=== PATIENT | male | born 1990 | race Caucasian/White ===

== ENCOUNTER 2016-08-09 22:34 | Observation (INO) | payer MEDICARE, MEDICAID ==
[~2016-08-09] VITALS: Ht 182.9 cm; Wt 69.2 kg
[2016-08-09 22:44] VITALS: BP 118/75; PULSE 109; O2SAT 99
[2016-08-09] MEDS ORDERED: Ondansetron 2 mg/mL 2 mL Inj IVPUSH ONE (23:10)
[2016-08-09] MEDS ORDERED: 0.9% Sodium Chloride 1,000 ML IV ONE ×2 (23:10→23:55)
--- NOTE | 2016-08-09 23:10 | ED.REPORT ---
HPI-NVD Date of Service Aug 09, 2016 ED Provider: MD David This is a 25 year old male with a history of Asperger's presenting to the emergency department due to vomiting that began 6 hours ago. Associated symptoms include diarrhea, nausea, epigastric abdominal pain, and chills. Five episodes diarrhea since onset. Denies hematemesis, hematochezia, dysuria, hematuria, or headache. Denies recent EtOH consumption. Pt ate a pizza from [employer] 7 hours ago. Nursing Notes Stated Complaint: VOMITING, DIARRHEA Chief Complaint: FLU/Cold Symptoms Nursing Notes Reviewed: Yes Allergies: Coded Allergies: No Known Allergies (Unverified , 10/23/15) General Time Seen by MD: 23:10 Chief Complaint Vomiting Hx Obtained From: Patient Arrived By: Walk-in Onset Occurred: 5 - 8 hours ago Symptom Duration: Since onset Severity: Current: Mild Pertinent Negative: Pt denies other symptoms Recent Healthcare: No recent doctor visit, No recent hospitalization Similar Sx Previous: No Past Medical History Past Medical History asperger's syndrome Past Surgical History Open heart surgery as a child Family History Reviewed, not relevant Smoking History Unknown if Ever Smoker Ambulatory Status Independent Review of Systems Constitutional: Reports: Chills, Denies: Fever GI: Reports: Abdominal pain, Diarrhea, Nausea, Vomiting, Denies: Constipation, Hematemesis, Hematochezia Neurologic: Denies: Headache Complete sys rev & neg: except as marked. Respiratory: Denies: Non-productive cough, Shortness of breath Male: Denies Dysuria, Denies Hematuria Physical Exam Initial Vital Signs Vital Signs (First) Date Time Temp Pulse Resp B/P Pulse Ox O2 Delivery O2 Flow Rate FiO2 08/09/16 22:44 36.1 109 118/75 99 Room Air Initial VS: Reviewed Head / Eyes: Atraumatic, Normocephalic, PERRL ENT: Conjunctiva normal, No scleral icterus Neck: Supple, Non-tender, Full range of motion Respiratory: Breath sounds normal, Clear to auscultation, No respiratory distress Cardiovascular: Regular rate & rhythm, Heart sounds normal, Intact distal pulses Extremities: Vascular intact, Neuro intact, No swelling, No tenderness Skin: Warm, Dry, No cyanosis Neurologic: Alert, Oriented, Nonfocal Psychiatric: Mood/affect normal, Behavior normal, Normal thought content General/Constitutional: Awake, Alert Tenderness/Guarding/Rebound: Positive: Tender diffuse (worse in RLQ) Midline well-healed sternotomy scar Interpretation & Diagnostics CT ABD PELVIS W CONTRAST IMPRESSION: Several loops of small bowel which demonstrate wall thickening, this may represent underdistention. In the proper clinical setting, infection or inflammatory bowel disease should be considered. Appendix is not seen, if there is clinical concern for appendicis, a repeat CT with oral or rectal contrast is recommended to help identify the appendix, and rule out appendicitis. Conclusion: Camron Hu MD Lab Results Interpretation Result Diagram: 08/09/16 2300 08/09/16 230 Test 08/09/16 23:00 08/10/16 01:00 White Blood Count 23.0th/mm3 (3.8-10.1) Red Blood Count 5.57mil/mm3 (4.40-5.80) Hemoglobin 17.0g/dL (13.8-17.2) Hematocrit 48.2% (41.0-50.0) Mean Corpuscular Volume 86.5fL (81-100) Mean Corpuscular Hemoglobin 30.5pg (27.0-35.0) Mean Corpuscular Hemoglobin Concent 35.3% (32.0-37.0) Red Cell Distribution Width 12.9% (12.3-15.4) Platelet Count 219bil/L (150-400) Neutrophils (%) (Auto) 92.1% (40-74) Lymphocytes (%) (Auto) 2.7% (14-46) Monocytes (%) (Auto) 4.5% (4-12) Eosinophils (%) (Auto) 0.3% (0-5) Basophils (%) (Auto) 0.1% (0-3) Sodium Level 141mEq/L (134-144) Potassium Level 4.2mEq/L (3.5-5.2) Chloride Level 100mEq/L (97-108) Carbon Dioxide Level 19mmol/L (18-29) Blood Urea Nitrogen 13mg/dL (6-20) Creatinine 0.74mg/dL (0.76-1.27) Estimat Glomerular Filtration Rate 135mL/min (>59) Glucose Level 180mg/dL (60-99) Lactic Acid Level 2.7mmol/L (0.4-2.0) Calcium Level 10.9mg/dL (8.5-10.1) Magnesium Level 1.8mg/dL (1.6-2.6) Total Bilirubin 1.0mg/dL (0.0-1.2) Aspartate Amino Transf (AST/SGOT) 17U/L (0-50) Alanine Aminotransferase (ALT/SGPT) 11U/L (0-44) Alkaline Phosphatase 66U/L (25-150) Total Protein 8.8g/dL (6.4-8.4) Albumin 5.5g/dL (3.4-5.0) Lipase 16U/L (13-60) Urine Color Dark yellow (YELLOW) Urine Appearance Clear (CLEAR,HAZY) Urine pH 7.5 (5.0-8.0) Urine Specific [place] 1.010 (1.003-1.035) Urine Protein Negativemg/dL (NEG,TRACE) Urine Glucose (UA) Negativemg/dL (NEGATIVE) Urine Ketones Negativemg/dL (NEGATIVE) Urine Occult Blood Negative (NEGATIVE) Urine Nitrite Negative (NEGATIVE) Urine Bilirubin Negative (NEGATIVE) Urine Urobilinogen Normalmg/dL (NORMAL) Urine Leukocyte Esterase Negative (NEGATIVE) Urine RBC 0-2/hpf (0-2) Urine WBC 0-5/hpf (0-5) Urine Epithelial Cells Occasional/hpf (NONE-MOD) Urine Crystals None seen (NONE SEEN) Urine Bacteria None/hpf (NONE-FEW) Urine Hyaline Casts None/lpf (NONE) Urine Granular Casts None seen (NONE SEEN) Urine Waxy Casts None seen (NONE SEEN) Urine Red Blood Cell Casts None seen (NONE SEEN) Urine White Blood Cell Casts None seen (NONE SEEN) Urine Mucus Present (None Seen) Urine Trichomonas None seen (NONE SEEN) Urine Yeast None (NONE SEEN) Urine Culture Reflexed Not indicated Re-Eval/Medical Decision Med Decision/Clinical Course 25-year-old male with no past medical history here with severe nausea, vomiting , diarrhea of sudden onset at 5:00 today. Differential diagnosis includes but is not limited to viral versus bacterial gastroenteritis versus appendicitis versus new onset inflammatory bowel disease. CT scan shows thickened bowel loops, but the appendix was not visualized. Patient has a leukocytosis with left shift. H&H are unremarkable. CMP shows hyperglycemia, though is otherwise normal. His lactic acid is elevated at 2.7. He was given 2 L of fluids in the emergency department, along with several rounds of antiemetics. I discussed the case with surgery Dr. Camejo who will see the patient in the morning, though both of us have somewhat low suspicion for appendicitis given his history of present illness. Patient has been accepted by the hospitalist Dr. Tay for IV fluids, antiemetics, and further workup of infectious process. He is aware and amenable to admission. At this time, I do not feel he requires antibiotics, as I do not know what I am treating. Re-Evaluation/Progress : Time of Eval: 01:51 Re-Evaluation/Progress Note: Discussed need for admission, all questions addressed Consultation #1: Referral / Consult Name: Juancarlos Camejo MD Consulted With: Surgeon Call Returned at: 00:55 [employer] Application Developer: Agrees with eval, Agrees with plan Note: Recommends admission Consultation #2: Referral / Consult Name: Colleen Tay DO Consulted With: Hospitalist Call Returned at: 01:51 [employer] Application Developer: Accepts admit Counseled Regarding: Diagnosis, Need for follow-up Discharge & Departure Impression: Primary Impression: Nausea vomiting and diarrhea Disposition: ADMITTED TO HOSPITAL Discharge Condition All VS Reviewed: Yes Condition: Stable Referrals: [facility] ([facility]) Scribe Attestation Portions of this note were transcribed by Annette Anders. I, Dr. Hernandez personally performed the history, physical exam and medical decision-making; I reviewed and confirmed the accuracy of the information in the transcribed note. Signed by: lana Chow. 08/09/2016, 03:00. Lauren Hernandez MD Aug 09, 2016 23:10 ANNTETE ANDERS Aug 09, 2016 23:13
[2016-08-09 23:20] LABS: BASOPHILS % (AUTO) 0.1 % (0-3); EOSINOPHILS % (AUTO) 0.3 % (0-5); MONOCYTES % (AUTO) 4.5 % (4-12); Mean Corpuscular Hemoglobin 30.5 pg (27.0-35.0); Mean Corpuscular Volume 86.5 fL (81-100); NEUTROPHILS % (AUTO) 92.1 % (40-74); Platelet Count 219 bil/L (150-400)
[2016-08-09 23:44] LABS: Magnesium 1.8 mg/dL (1.6-2.6)
[2016-08-10] VITALS (7 sets, daily range): BP systolic 108–122; BP diastolic 48–77; PULSE 59–86; RESP 16–20; O2SAT 97–99
[2016-08-10] MEDS ORDERED: HYDROmorphone 0.5 mg/0.5 mL iSecure Syringe IVPUSH ONE (00:55)
[2016-08-10] MEDS ORDERED: Promethazine Inj 25 MG in 0.9% Sodium Chloride-Pha MIX 100 ML IV ONE (00:55)
[2016-08-10 01:31] LABS: APPEARANCE,URINE CLEAR (CLEAR,HAZY); COLOR,URINE DARK YELLOW (YELLOW); PH,URINE 7.5 (5.0-8.0)
[2016-08-10 01:32] LABS: OCCULT BLOOD,URINE NEGATIVE (NEGATIVE); UROBILINOGEN,URINE NORMAL (NORMAL)
[2016-08-10] MEDS ORDERED: Alum-Mag Hydrox-Simeth 30 mL Suspension PO PRN (01:55)
[2016-08-10] MEDS ORDERED: Polyethylene Glycol (PEG) 17 Gm Powder PO PRN (01:55)
[2016-08-10] MEDS ORDERED: Ondansetron 2 mg/mL 2 mL Inj IVPUSH PRN (01:55)
--- NOTE | 2016-08-10 02:00 | PCM.HPMED ---
Subjective Date of Service Aug 10, 2016 Primary Provider: Admitting Physician: Colleen Tay DO Primary Care Physician: [facility] Attending Physician: Colleen Tay DO Admit Status: From the Emergency Department Chief Complaint: nausea, vomiting, diarrhea History of Present Illness: 25yoM with minimal past medical history admitted with acute onset of nausea, vomiting and diarrhea. Patient states that prior to admission he began having nausea and chills with onset of vomiting (20x) and diarrhea. Diarrhea is described as watery and was a /w incontinence. He has recent contact with son who had similar symptoms however not diarrhea. Prior to onset patient ate at [employer] with family however he appears to be the only one to have N/V/D. Patient denies hematochezia, melena, hematemesis, urinary symptoms, abdominal pain but does endorse mild chest discomfort with vomiting and lightheadedness. On admission patient with HR 109, T36.1, BP 118/75, 99% on RA. WBC 23, neutrophil 92.1%, lactic acid 2.7 Review of Systems: complete review of system obtained. positive as per hpi otherwise negative. Allergies Coded Allergies: No Known Allergies (Unverified , 10/23/15) Home Medications Strattera PMH Asbergers Syndrome ADD Surgical History Open heart surgery as a child Family History no family history of asbergers Social History Hx Alcohol Use: No Hx Substance Use: No (NO MARIJAUNA X 1 MONTH PER PT) Smoking Status: Unknown if Ever Smoker Living Arrangement: with Family Exam Vital Signs Vital Sign - Last Date Time Temp Pulse Resp B/P Pulse Ox O2 Delivery O2 Flow Rate FiO2 08/09/16 22:44 36.1 109 118/75 99 Room Air Intake and Output 08/09/16 08/09/16 08/10/16 Cumulative From/Thru 15:00 23:00 07:00 08/09/16 22:44 - 08/10/16 00:00 Intake Total 2000 ml 2000 ml Balance 2000 ml 2000 ml Intake IV Total 2000 ml 2000 ml Exam General: Alert, Oriented x3, no acute distress Eyes: PERRLA, sclera anicteric Mouth: dry mucous membranes Head: NCAT Neck: supple, trachea midline, no thyromegaly Chest and lungs: CTA and percussion bilateral, no adventitious breath sounds, no crackles, no wheeze, good resp effort Cardiovascular: Normal S1 and S2, no R/G, systolic murmur, regular rate and rhythm Abdomen: non-tender, non-distended, hypoactive bowel sounds Pulses: Radial (present and equal), Dorsalis pedi (present and equal) MSK: no erythema / edema, Extremities: no edema / erythema Skin: no rashes, bruises Neuro: grossly intact Psych: normal affect Lab and Diagnostics Result Diagram: 08/09/16 2300 08/09/16 2300 X-Rays, CTs and MRIs CT ABD PELVIS W CONTRAST IMPRESSION: Several loops of small bowel which demonstrate wall thickening, this may represent underdistention. In the proper clinical setting, infection or inflammatory bowel disease should be considered. Appendix is not seen, if there is clinical concern for appendicis, a repeat CT with oral or rectal contrast is recommended to help identify the appendix, and rule out appendicitis. Conclusion: Camron Hu MD Assessment & Plan 25yoM with minimal past medical history admitted with acute onset of nausea, vomiting and diarrhea. Severe sepsis, acute, POA -HR >90, WBC>12, lactic acid 2.7 -most likely secondary to gastroenteritis, as below -symptomatic treatment, low threshold to start broad spectrum empiric abx Nausea, vomiting, diarrhea, acute, POA -unclear etiology, likely gastroenteritis, acute appendicitis not ruled out however less likely (Surgery consulted in ED), possible IBD -known sick contacts -stool PCR pending -contact isolation precautions -mIVF, NPO until after surgery evaluation -ondansetron 4-8mg q4HR PRN Elevated glucose, acute, POA -no history of DM -hgba1c pending Hypercalcemia, acute, POA -mildly elevated calcium -continue to monitor -s/p bolus in ED, mIVF as above -if remain elevated consider iCA level Pain Evaluation: Adequate Pain Control GI Prophylaxis: Not indicated VTE Prophylaxis: Sub-Q Heparin (Unfractionated) Resuscitation Status: CPR: Attempt Resuscitation Colleen Tay DO Aug 10, 2016 02:00
--- NOTE | 2016-08-10 02:45 | NUR ---
Transfer Patient arrived to unit able to self transfer to bed and stand on scale. Patient alert and able to make needs known. Denies pain and nausea at this time.
[2016-08-10] MEDS: 0.9% Sodium Chloride 1,000 ML IV SCH ×3 (03:12→23:12)
[2016-08-10 05:28] LABS: BASOPHILS % (AUTO) 0.1 % (0-3); EOSINOPHILS % (AUTO) 0 % (0-5); Mean Corpuscular Volume 88.1 fL (81-100); NEUTROPHILS % (AUTO) 95.9 % (40-74); Platelet Count 165 bil/L (150-400)
--- NOTE | 2016-08-10 08:20 | PCM.CONSUR ---
Subjective Date of Service: Aug 10, 2016 History of Present Illness Mr. Kavon Hugo is a 25 year old gentleman with past medical history of congenital heart defect, Asperger's, ADHD, who presented to the emergency department due to epigastric pain followed by vomiting and watery diarrhea x20. Patients son had similar symptoms the day before. Patient ate [employer] with family however he appears to be the only one to have N/V/D. Denies hematemesis, hematochezia, dysuria, hematuria, or headache. Denies recent EtOH consumption. Denies tobacco, reports intermittent marijuana use. Reason for Consultation Abdominal pain, vomiting, diarrhea. Allergy Allergies: Coded Allergies: No Known Allergies (Unverified , 08/10/16) Medications Hypertension Medication: No Home Meds Incl Beta Blockers: No Atomoxetine (Strattera) 60 Mg Capsule 60 MG PO DAILY (Reported) Last Taken: Unknown Dose on 08/09/16 0900 Sertraline HCl (Sertraline) 50 Mg Tablet 50 MG PO DAILY (Reported) Last Taken: Unknown Dose on 08/09/16 0900 Past Surgical History Surgeries: Yes (Repair of congenital heart defect. ) Patient/Family Past Surgical: Positive for:: Accept Blood Products?, Denies:: Blood Transfusions Social History Hx Alcohol Use: No Hx Substance Use: No PMH HEENT History History of ENT Problems?: No Cardiovascular History History of Heart Problems?: No Cardiovascular History: Positive for:: Heart Murmur Denies:: Congestive Heart Failure Hypertension Respiratory Respiratory History: Positive for:: Pneumonia Denies:: Tuberculosis Neurological History Hx Neurologic Problems?: No Gastrointestinal History HX of GI Problems?: No Genitourinary History Genitourinary History: Denies: Kidney Stones Urinary Tract Infection Musculoskeletal History Hx Musculoskeletal Problems?: No Psycho Social History Hx of Psycho/Social Problems?: No Other History Diabetes: No Social History Hx Alcohol Use: NoHx Substance Use: NoHx Tobacco Use: No Smoking Status: Unknown if Ever Smoker Living Arrangement: with Family Objective Exam Objective A comprehensive review of systems was conducted with the patient and found to be negative except as above in the History of Present Illness. Vital Signs & I/O Vital Sign- Last 8 Hours Date Time Temp Pulse Resp B/P Pulse Ox O2 Delivery O2 Flow Rate FiO2 08/10/16 03:56 69 08/10/16 03:16 36.8 67 20 113/68 97 Room Air 08/10/16 02:36 36.4 86 17 122/77 99 Room Air Intake and Output- Last 8 Hour 08/10/16 Cumulative From/Thru 07:00 08/09/16 22:44 - 08/10/16 05:39 Intake Total 2000 ml 2000 ml Balance 2000 ml 2000 ml Intake IV Total 2000 ml 2000 ml Lab & Micro Results Laboratory Tests Test 08/09/16 23:00 08/10/16 01:00 08/10/16 03:30 08/10/16 04:42 White Blood Count 23.0th/mm3 (3.8-10.1) 14.9th/mm3 (3.8-10.1) Red Blood Count 5.57mil/mm3 (4.40-5.80) 4.36mil/mm3 (4.40-5.80) Hemoglobin 17.0g/dL (13.8-17.2) 13.1g/dL (13.8-17.2) Hematocrit 48.2% (41.0-50.0) 38.4% (41.0-50.0) Mean Corpuscular Volume 86.5fL (81-100) 88.1fL (81-100) Mean Corpuscular Hemoglobin 30.5pg (27.0-35.0) 30.0pg (27.0-35.0) Mean Corpuscular Hemoglobin Concent 35.3% (32.0-37.0) 34.1% (32.0-37.0) Red Cell Distribution Width 12.9% (12.3-15.4) 12.7% (12.3-15.4) Platelet Count 219bil/L (150-400) 165bil/L (150-400) Neutrophils (%) (Auto) 92.1% (40-74) 95.9% (40-74) Lymphocytes (%) (Auto) 2.7% (14-46) 1.9% (14-46) Monocytes (%) (Auto) 4.5% (4-12) 2.0% (4-12) Eosinophils (%) (Auto) 0.3% (0-5) 0% (0-5) Basophils (%) (Auto) 0.1% (0-3) 0.1% (0-3) Sodium Level 141mEq/L (134-144) 145mEq/L (134-144) Potassium Level 4.2mEq/L (3.5-5.2) 4.2mEq/L (3.5-5.2) Chloride Level 100mEq/L (97-108) 108mEq/L (97-108) Carbon Dioxide Level 19mmol/L (18-29) 21mmol/L (18-29) Blood Urea Nitrogen 13mg/dL (6-20) 11mg/dL (6-20) Creatinine 0.74mg/dL (0.76-1.27) 0.75mg/dL (0.76-1.27) Estimat Glomerular Filtration Rate 135mL/min (>59) 133mL/min (>59) Glucose Level 180mg/dL (60-99) 137mg/dL (60-99) Lactic Acid Level 2.7mmol/L (0.4-2.0) 1.0mmol/L (0.4-2.0) Calcium Level 10.9mg/dL (8.5-10.1) 9.1mg/dL (8.5-10.1) Magnesium Level 1.8mg/dL (1.6-2.6) Total Bilirubin 1.0mg/dL (0.0-1.2) 0.9mg/dL (0.0-1.2) Aspartate Amino Transf (AST/SGOT) 17U/L (0-50) 13U/L (0-50) Alanine Aminotransferase (ALT/SGPT) 11U/L (0-44) 8U/L (0-44) Alkaline Phosphatase 66U/L (25-150) 47U/L (25-150) Total Protein 8.8g/dL (6.4-8.4) 6.4g/dL (6.4-8.4) Albumin 5.5g/dL (3.4-5.0) 4.4g/dL (3.4-5.0) Lipase 16U/L (13-60) Urine Color Dark yellow (YELLOW) Urine Appearance Clear (CLEAR,HAZY) Urine pH 7.5 (5.0-8.0) Urine Specific [place] 1.010 (1.003-1.035) Urine Protein Negativemg/dL (NEG,TRACE) Urine Glucose (UA) Negativemg/dL (NEGATIVE) Urine Ketones Negativemg/dL (NEGATIVE) Urine Occult Blood Negative (NEGATIVE) Urine Nitrite Negative (NEGATIVE) Urine Bilirubin Negative (NEGATIVE) Urine Urobilinogen Normalmg/dL (NORMAL) Urine Leukocyte Esterase Negative (NEGATIVE) Urine RBC 0-2/hpf (0-2) Urine WBC 0-5/hpf (0-5) Urine Epithelial Cells Occasional/hpf (NONE-MOD) Urine Crystals None seen (NONE SEEN) Urine Bacteria None/hpf (NONE-FEW) Urine Hyaline Casts None/lpf (NONE) Urine Granular Casts None seen (NONE SEEN) Urine Waxy Casts None seen (NONE SEEN) Urine Red Blood Cell Casts None seen (NONE SEEN) Urine White Blood Cell Casts None seen (NONE SEEN) Urine Mucus Present (None Seen) Urine Trichomonas None seen (NONE SEEN) Urine Yeast None (NONE SEEN) Urine Culture Reflexed Not indicated Microbiology 08/09/16 Blood Culture, Received Pending Result Diagram: 08/10/162 08/10/16 0442 Review of Systems: Constitutional: Negative, except as otherwise mentioned in the history above. Ophthalmologic: Negative, except as otherwise mentioned in the history above. Cardiovascular: Negative, except as otherwise mentioned in the history above. Respiratory: Negative, except as otherwise mentioned in the history above. Gastrointestinal: Negative, except as otherwise mentioned in the history above. Genitourinary: Negative, except as otherwise mentioned in the history above. Musculoskeletal: Negative, except as otherwise mentioned in the history above. Neurological: Negative, except as otherwise mentioned in the history above. Psychiatric: Negative, except as otherwise mentioned in the history above. Hematologic/Lymphatic: Negative, except as otherwise mentioned in the history above. Allergic/Immunologic: Negative, except as otherwise mentioned in the history above. H&P Surgical Exam Exam General: Alert, Oriented X3, No Acute Distress HEENT: Within normal limits & unremarkable Neck: Within normal limits & unremarkable Respiratory: Clear to Auscultation, Breath Sounds Diminished Cardiac: Other (Regular rate and rhythm, mild systolic flow murmur present. ) Abdomen: Normal bowel sounds, Soft, No tenderness, No masses Breasts: Not Indicated Pelvic: Not Indicated Assessment & Plan Assessment Assessment. Mr. Kavon Hugo is a 25 year old gentleman with past medical history of congenital heart defect, Asperger's, ADHD, who presented to the emergency department due to epigastric pain followed by vomiting and watery diarrhea x20. Patients son had similar symptoms the day before. Patient ate [employer] with family however he appears to be the only one to have N/V/D. Denies hematemesis, hematochezia, dysuria, hematuria, or headache. Denies recent EtOH consumption. Denies tobacco, reports intermittent marijuana use. Differential includes bacterial vs. viral gastroenteritis, Cdiff, appendicitis, gastritis. Pain Evaluation: Adequate Pain Control VTE Prophylaxis: Sub-Q Heparin (Unfractionated) Plan: I do not believe this is a surgical case. Patients symptoms of epigastric pain, vomiting and diarrhea have been resolved now for at least 9 hours. Appendix was not visualized on CT. WBC continues to improve with fluids. Advance diet to clears and monitor. Disposition per hospitalist. Resuscitation Status: CPR: Attempt Resuscitation Attending Statement: I personally interviewed and examined the pt, and I agree with Dr. Quan's assessment and plan. Doubt he has a surgical pathology. DANGELO QUAN DO Aug 10, 2016 08:04 Juancarlos Penny MD Aug 13, 2016 08:03
--- NOTE | 2016-08-10 08:43 | DRSVH ---
PROCEDURE: CT ABDOMEN AND PELVIS WITH CONTRAST ([id number]) INDICATIONS: 25 year-old man with right lower quadrant pain, chills and vomiting. TECHNIQUE: After the administration of intravenous contrast, 5 mm thick sections acquired from the diaphragm to the symphysis. 5 mm coronal and sagittal reformats were acquired. For radiation dose reduction, the following was used: automated exposure control, adjustment of mA and/or kV according to patient siz e. COMPARISON: None. FINDINGS: Image quality: Excellent. ABDOMEN: Lung bases: Lung bases are clear. Heart size is normal. Solid organs: Liver and spleen are normal in size and enhancement. Gallbladder is normal. Biliary system is non dilated. Pancreas enhances normally. No adrenal nodules. Kidneys demonstrate normal size and enhancement, without hydronephrosis. Peritoneum and bowel: Appendix is not definitively identified. A candidate for appendicitis (series 2 image 18) measures 6 mm. There is mild inflammatory stranding in the area. Cecum and terminal ileum are filled with fluid. There is no inflammatory stranding in the right lower quadrant. Loops of jeju num appear concentrically thickened. Bowel loops demonstrate normal caliber. No free fluid or air. Nodes and vessels: No retroperitoneal or mesenteric adenopathy by size criteria. Aorta and inferior vena cava are normal in size. Miscellaneous: No ventral hernias. PELVIS: Genitourinary: Bladder wall thickness is normal. Miscellaneous: No inguinal hernias or adenopathy. Bones: No suspicious bony lesions. No vertebral body compression fractures. IMPRESSION: 1. Appendix is not definitively identified. A candidate for appendix is normal in caliber. There is s ubtle stranding in the area. Early acute appendicitis can not be excluded. If clinically indicated, r epeat examination with oral contrast may be helpful. 2. Cecum and the terminal ileum are filled with fluid, which is a nonspecific finding and could be as sociated with an inflammatory or infectious process. 3. Segmental concentric thickening of the jejunum which may be caused by artifact from lack of disten tion or peristalsis. Differential diagnosis includes infectious or inflammatory etiologies. No significant discrepancy with the night stocker radiology preliminary report. Dictated by: Cathi Gonzalez M.D. on 08/10/2016 at 8:19 Transcribed by: CARMEN on 08/10/2016 at 8:43 Approved by: Cathi Gonzalez M.D. on 08/10/2016 at 16:03
[2016-08-10] MEDS ORDERED: SERT50TA9 PO (09:16)
[2016-08-10] MEDS ORDERED: ATOM60CA PO (09:16)
--- NOTE | 2016-08-10 11:10 | NUR ---
Case Management: AMERICA given and explained to pt. Patricia AGOSTORN
--- NOTE | 2016-08-10 13:14 | NUR ---
pt asking to leave frequently, wants to leave AMA "I'm going to leave when that bag(IVFs) is done" Dr Egan is aware pt wants to leave, he also talked to him at length, doctor feels he should stay at least overnight. Also Dr Egan and pt notified he is positive for Norovirus
[2016-08-10] MEDS: STRATTERA 60 MG PO SCH (13:46)
--- NOTE | 2016-08-10 15:31 | NUR ---
Social Work-attempted assessment: SW attempted to see pt, but RN currently in the room with pt. SW to follow up tomorrow and complete assessment. SW will continue to follow. MAURO Gabriel
--- NOTE | 2016-08-10 15:45 | NUR ---
GI pt continues to have small amts of loose stool, no nausea/vomiting, but has poor appetite, although he is eating few bites and taking some PO fluids
[2016-08-11] VITALS (7 sets, daily range): BP systolic 99–122; BP diastolic 58–75; PULSE 54–78; RESP 16–20; O2SAT 97–100
[2016-08-11] MEDS: 0.9% Sodium Chloride 1,000 ML IV SCH ×2 (07:50→19:59)
--- NOTE | 2016-08-11 08:56 | NUR ---
Social Work-initial assessment/ readiness for discharge: Data:See initial assessment. pt is a 25 y/o male who was admitted on 08/06/16 for vomiting per H&P. Pt's insurance is [employer] and PCP is [facility]. EMR Reviewed. Pt's readmission score is 1. SW met with pt at bedside to discuss discharge planning, SW role explained. Pt is alert and oriented x3. Pt resides at home with his girlfriend Ananay [phone] where he remains independent with ADLS. Pt does not drive and does not use any DME. pt has no HH or SNF history. Pt has no shelter care or VA benefits. SW discussed DPOA/advanced directive, pt has not completed this and is not interested in any information at this time. Per RN notes, pt has up independent in his room. Pt states his girlfriend will provide transport home. SW provided phone number and plan on white board in room. No discharge needs identified. SW will continue to follow if needs arise. Assessment:Pt who is independent at baseline. Plan:Pt to discharge home when medically stable via POV. No discharge needs identified. SW will continue to follow if needs arise. MAURO Gabriel Addendum: 08/11/16 at 0900 by RAMESH RAM Amended: Links added.
[2016-08-11 09:23] LABS: BASOPHILS % (AUTO) 0.1 % (0-3); EOSINOPHILS % (AUTO) 1.5 % (0-5); MONOCYTES % (AUTO) 7.3 % (4-12); Mean Corpuscular Hemoglobin 30.2 pg (27.0-35.0); Mean Corpuscular Volume 89.8 fL (81-100); Platelet Count 159 bil/L (150-400)
[2016-08-11] MEDS: STRATTERA 60 MG PO SCH (09:41)
--- NOTE | 2016-08-11 11:18 | PCM.PNMED ---
Subjective Date of Service Aug 11, 2016 Subjective Pt continues to have diarrhea. He has had 5 bowel movements this morning already. He denies abdominal pain, nausea, vomiting, and fever. He is anxious to leave hospital and is threatening to leave AMA. No other complaints or concerns at this time. Exam Vital Signs Vital Sign - Last Date Time Temp Pulse Resp B/P Pulse Ox O2 Delivery O2 Flow Rate FiO2 08/11/16 06:28 36.9 59 16 99/58 98 Room Air Intake and Output 08/10/16 08/10/16 08/11/16 Cumulative From/Thru 15:00 23:00 07:00 08/09/16 22:44 - 08/11/16 06:28 Intake Total 2928 ml 826 ml 5754 ml Output Total 400 ml 400 ml Balance 2528 ml 826 ml 5354 ml Intake Oral 1473 ml 826 ml 2299 ml IV Total 1455 ml 3455 ml Output Urine Total 400 ml 400 ml # Voids 2 2 # Bowel Movements 2 3 5 Exam GENERAL: NAD, Pt laying in bed comfortably HEENT: AT/NC, PERRLA, EOMI, Mucus Membranes are moist CARDIAC: RRR; No M/R/G PULM: CTAB; No wheezes or rhonchi bilaterally ABD: Soft, Nontender, Nondistended, Positive bowel sounds in all quadrants, No Hepatosplenomegaly appreciated NEURO: Alert and oriented x3; Following all commands PSYCH: Normal mood and affect IVs and Medications Medications Reviewed: Medications were reviewed in detail Lab and Diagnostics Result Diagram: 08/11/16 0900 08/11/16 0900 X-Rays, CTs and MRIs CT ABD PELVIS W CONTRAST IMPRESSION: Several loops of small bowel which demonstrate wall thickening, this may represent underdistention. In the proper clinical setting, infection or inflammatory bowel disease should be considered. Appendix is not seen, if there is clinical concern for appendicis, a repeat CT with oral or rectal contrast is recommended to help identify the appendix, and rule out appendicitis. Conclusion: Camron Hu MD Assessment & Plan 25year old male with minimal past medical history admitted with acute onset of nausea, vomiting and diarrhea. 1. Gastroenteritis - Secondary to Norovirus - Continue IV Normal Saline for now - Repeat BMP in AM - Push PO intake - IV Zofran PRN for nausea/vomiting 2. Depression - Continue home medications 3. Asperger's Syndrome 4. Disposition - Anticipate discharge to home in AM GI Prophylaxis: Not indicated VTE Prophylaxis: Sub-Q Heparin (Unfractionated) Resuscitation Status: CPR: Attempt Resuscitation Faustino Egan MD Aug 11, 2016 11:18
--- NOTE | 2016-08-11 13:15 | NUR ---
GI Complains of abd cramping, lessened with food. Denies nausea. Frequent, partially formed stools. Tolerates general diet (salad, sandwich, smoothie.)
--- NOTE | 2016-08-11 18:45 | NUR ---
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 Addendum: 08/11/16 at 1847 by MAHENDRA PARKINSON CNA Amended: Links added.
--- NOTE | 2016-08-11 23:10 | NUR ---
Education Pt stated,"If I eat more, then I'll poop more, and then I can go home" RN explained to the pt that simply eating without nausea and having 2-3 formed stool a day is a the objective of recovering from his norovirus. Pt verbalized understanding.
[2016-08-12] MEDS: 0.9% Sodium Chloride 1,000 ML IV SCH (04:37)
[2016-08-12 05:44] VITALS: BP 129/66; PULSE 79; RESP 20; O2SAT 100
--- NOTE | 2016-08-12 07:08 | NUR ---
GI Pt had one formed brown stool overnight. No complaint of pain.
[2016-08-12 08:38] LABS: BASOPHILS % (AUTO) 0.2 % (0-3); EOSINOPHILS % (AUTO) 2.5 % (0-5); MONOCYTES % (AUTO) 8.6 % (4-12); Mean Corpuscular Hemoglobin 30.1 pg (27.0-35.0); Mean Corpuscular Volume 88.2 fL (81-100); NEUTROPHILS % (AUTO) 73.8 % (40-74); Platelet Count 162 bil/L (150-400)
[2016-08-12] MEDS: STRATTERA 60 MG PO SCH (08:58)
--- NOTE | 2016-08-12 09:00 | PCM.DIMED ---
Discharge Instructions Date of Service Aug 12, 2016 Dates of Hospitalization Aug 10, 2016 at 01:55 Discharge Diagnosis Discharge Diagnosis 1. Gastroentertitis, secondary to Norovirus 2. Dehydration 3. Depression 4. Asperger's Syndrome Diet No restrictions Activity No restrictions Call your provider Fever or Chills, Shortness of breath, Bleeding, Chest pain, Vomitting, Excessive diarrhea, Weakness (unilateral) Patient Instructions Follow-up with PCP in: 1 week (PT to call for an appointment.) Faustino Egan MD Aug 12, 2016 09:00
--- NOTE | 2016-08-12 09:25 | NUR ---
Social Work-discharge: Data:EMR reviewed. Pt is on day 2 of hospitalization for nausea per H&P. Pt is medically stable for discharge today. SW confirmed with pt home no needs. Pt has been up independent in his room. No anticipated discharge needs. SW will continue to follow if needs arise. Assessment:Pt who is independent at baseline. Plan:Pt to discharge home today via POV. No anticipated discharge needs. SW will continue to follow if needs arise. MAURO Gabriel
--- NOTE | 2016-08-12 11:55 | NUR ---
DC All discharge instructions reviewed with patient and significant other. All instructions understood per pt. All belongings in hand. Pts own 2 medications given to him from [facility]. IV discontinued this morning. Care discontinues.
--- NOTE | 2016-08-12 12:11 | PCM.DC.MED ---
Discharge Summary Date of Service Aug 12, 2016 Dates of Hospitalization Date of Hospital Admission Aug 10, 2016 at 01:55 Date of Discharge: Aug 12, 2016 Providers: Admitting Physician: Colleen Tay DO [facility] Attending Physician: Colleen Tay DO Diagnosis at Time of Discharge Diagnosis at Time of Discharge 1. Gastroentertitis, secondary to Norovirus 2. Dehydration 3. Depression 4. Asperger's Syndrome Procedures XRay, CTs & MRIs CT ABD PELVIS W CONTRAST IMPRESSION: Several loops of small bowel which demonstrate wall thickening, this may represent underdistention. In the proper clinical setting, infection or inflammatory bowel disease should be considered. Appendix is not seen, if there is clinical concern for appendicis, a repeat CT with oral or rectal contrast is recommended to help identify the appendix, and rule out appendicitis. Conclusion: Camron Hu MD Brief History 25yoM with minimal past medical history admitted with acute onset of nausea, vomiting and diarrhea. Patient states that prior to admission he began having nausea and chills with onset of vomiting (20x) and diarrhea. Diarrhea is described as watery and was a /w incontinence. He has recent contact with son who had similar symptoms however not diarrhea. Prior to onset patient ate at [employer] with family however he appears to be the only one to have N/V/D. Patient denies hematochezia, melena, hematemesis, urinary symptoms, abdominal pain but does endorse mild chest discomfort with vomiting and lightheadedness. On admission patient with HR 109, T36.1, BP 118/75, 99% on RA. WBC 23, neutrophil 92.1%, lactic acid 2.7 Hospital Course 25year old male with minimal past medical history admitted with acute onset of nausea, vomiting and diarrhea. 1. Gastroenteritis - Secondary to Norovirus - Resolved - Pt received IV Normal Saline while in hospital for rehydration - Electrolytes have normalized - Pt tolerating PO on day of discharge and his diarrhea has resolved - Pt is in good/stable condition for discharge 2. Depression - Continue home medications 3. Asperger's Syndrome Exam Vital Signs (Last) Date Time Temp Pulse Resp B/P Pulse Ox O2 Delivery O2 Flow Rate FiO2 08/12/16 05:44 36.7 79 20 129/66 100 Room Air Exam GENERAL: NAD, Pt laying in bed comfortably HEENT: AT/NC, PERRLA, EOMI, Mucus Membranes are moist CARDIAC: RRR; No M/R/G PULM: CTAB; No wheezes or rhonchi bilaterally ABD: Soft, Nontender, Nondistended, Positive bowel sounds in all quadrants, No Hepatosplenomegaly appreciated NEURO: Alert and oriented x3; Following all commands PSYCH: Normal mood and affect Test 08/09/16 23:00 08/10/16 01:00 08/10/16 03:30 08/10/16 04:42 Magnesium Level 1.8mg/dL (1.6-2.6) Lipase 16U/L (13-60) Urine Color Dark yellow (YELLOW) Urine Appearance Clear (CLEAR,HAZY) Urine pH 7.5 (5.0-8.0) Urine Specific [place] 1.010 (1.003-1.035) Urine Protein Negativemg/dL (NEG,TRACE) Urine Glucose (UA) Negativemg/dL (NEGATIVE) Urine Ketones Negativemg/dL (NEGATIVE) Urine Occult Blood Negative (NEGATIVE) Urine Nitrite Negative (NEGATIVE) Urine Bilirubin Negative (NEGATIVE) Urine Urobilinogen Normalmg/dL (NORMAL) Urine Leukocyte Esterase Negative (NEGATIVE) Urine RBC 0-2/hpf (0-2) Urine WBC 0-5/hpf (0-5) Urine Epithelial Cells Occasional/hpf (NONE-MOD) Urine Crystals None seen (NONE SEEN) Urine Bacteria None/hpf (NONE-FEW) Urine Hyaline Casts None/lpf (NONE) Urine Granular Casts None seen (NONE SEEN) Urine Waxy Casts None seen (NONE SEEN) Urine Red Blood Cell Casts None seen (NONE SEEN) Urine White Blood Cell Casts None seen (NONE SEEN) Urine Mucus Present (None Seen) Urine Trichomonas None seen (NONE SEEN) Urine Yeast None (NONE SEEN) Urine Culture Reflexed Not indicated Lactic Acid Level 1.0mmol/L (0.4-2.0) Total Bilirubin 0.9mg/dL (0.0-1.2) Aspartate Amino Transf (AST/SGOT) 13U/L (0-50) Alanine Aminotransferase (ALT/SGPT) 8U/L (0-44) Alkaline Phosphatase 47U/L (25-150) Total Protein 6.4g/dL (6.4-8.4) Albumin 4.4g/dL (3.4-5.0) Test 08/12/16 08:30 White Blood Count 6.5th/mm3 (3.8-10.1) Red Blood Count 4.59mil/mm3 (4.40-5.80) Hemoglobin 13.8g/dL (13.8-17.2) Hematocrit 40.5% (41.0-50.0) Mean Corpuscular Volume 88.2fL (81-100) Mean Corpuscular Hemoglobin 30.1pg (27.0-35.0) Mean Corpuscular Hemoglobin Concent 34.1% (32.0-37.0) Red Cell Distribution Width 12.6% (12.3-15.4) Platelet Count 162bil/L (150-400) Neutrophils (%) (Auto) 73.8% (40-74) Lymphocytes (%) (Auto) 14.7% (14-46) Monocytes (%) (Auto) 8.6% (4-12) Eosinophils (%) (Auto) 2.5% (0-5) Basophils (%) (Auto) 0.2% (0-3) Sodium Level 142mEq/L (134-144) Potassium Level 3.9mEq/L (3.5-5.2) Chloride Level 106mEq/L (97-108) Carbon Dioxide Level 22mmol/L (18-29) Blood Urea Nitrogen 6mg/dL (6-20) Creatinine 0.66mg/dL (0.76-1.27) Estimat Glomerular Filtration Rate 154mL/min (>59) Glucose Level 97mg/dL (60-99) Calcium Level 9.2mg/dL (8.5-10.1) Discharge Medications Discharge Medications Atomoxetine (Strattera) 60 Mg Capsule 60 MG PO DAILY (Reported) Sertraline HCl (Sertraline) 50 Mg Tablet 50 MG PO DAILY (Reported) Followup Plan Discharge Diet: No restrictions Discharge Activity: No restrictions Follow-up with PCP in: 1 week (PT to call for an appointment.) Time spent 32 minutes Faustino Egan MD Aug 12, 2016 12:11
== END 2016-08-12 11:54 | disposition home or self-care (01) ==
LOC: SED 22:34 → OSC 08-10 01:55
PROVIDERS: ADMIT Internal Medicine; ATTEND Internal Medicine
DX: R11.2 Nausea with vomiting, unspecified (principal); R19.7 Diarrhea, unspecified